=== PATIENT | female | born 1945 | race Caucasian/White ===

== ENCOUNTER 2017-11-15 06:40 | Day surgery (SDC) | payer OTHER ==
[~2017-11-15 06:40] MED LIST: AZULFIDINE500 M1 PO; METHOTREXATE2.5 MG PO; MOBIC7.5 M1 PO; PLAQUENIL PO; SYNTHROID175 MCG PO
[2017-11-15] MEDS ORDERED: LEVAQUIN500 MG PO (11:37)
[2017-11-15] MEDS ORDERED: ULTRACET PO (11:38)
== END 2017-11-15 15:10 | disposition home or self-care (01) ==
LOC: CIR.AMB 06:40
DX: N32.81 Overactive bladder (principal); N39.46 Mixed incontinence
CPT/HCPCS: 64590; 64581; C1767; C1778

== ENCOUNTER 2019-05-08 07:00 | Day surgery (SDC) | payer OTHER ==
[~2019-05-08 07:00] MED LIST changes: +COZAAR50 MG PO; +LEVAQUIN500 MG PO; +ULTRACET PO
[2019-05-08] MEDS ORDERED: ULTRACET PO (11:11)
[2019-05-08] MEDS ORDERED: LEVAQUIN500 MG PO (11:12)
== END 2019-05-08 12:30 | disposition home or self-care (01) ==
LOC: CIR.AMB 07:00 → ADM 10:15 → CIR.AMB 10:15
DX: N39.41 Urge incontinence (principal); N32.81 Overactive bladder